=== PATIENT | male | born 1960 | race African-American/Black ===

== ENCOUNTER → 2017-02-28 | Outpatient (CLI) | payer OTHER ==
[~2017-02-28] VITALS: Ht 177.8 cm; Wt 157.9 kg
[~2017-02-28] MED LIST: AMLO-512 PO; CHOL100030 PO; CINN500C4 PO; FERR-89 PO; FURO20 PO; HYDR25TA PO; IBUP200C8 PO; LOSA25TA21 PO; METF500T4 PO; MUPI22OI2 TP; RIVA15T PO; SULF1TAB89 PO; TAMS0.4C32 PO
[2017-02-28 11:51] VITALS: BP 141/78
== END | disposition home or self-care (01) ==
LOC: HBOWC 10:52
PROVIDERS: ATTEND Emergency Medicine
DX: E11.622 Type 2 diabetes mellitus with other skin ulcer (principal); L97.822 Non-pressure chronic ulcer of other part of left lower leg with fat layer exposed; I87.2 Venous insufficiency (chronic) (peripheral); E11.42 Type 2 diabetes mellitus with diabetic polyneuropathy; I10 Essential (primary) hypertension; E66.01 Morbid (severe) obesity due to excess calories; Z86.718 Personal history of other venous thrombosis and embolism
CPT/HCPCS: 11042; G0463

== ENCOUNTER → 2017-03-08 | Outpatient (CLI) | payer OTHER ==
[~2017-03-08] MED LIST changes: -AMLO-512 PO; -CHOL100030 PO; +LIDOCAINE HCL 2% 5 ML JELLY TP ONE
[2017-03-08 13:51] VITALS: BP 133/81
== END | disposition home or self-care (01) ==
LOC: HBOWC 13:32
PROVIDERS: ATTEND Internal Medicine
DX: E11.622 Type 2 diabetes mellitus with other skin ulcer (principal); L97.821 Non-pressure chronic ulcer of other part of left lower leg limited to breakdown of skin; E66.01 Morbid (severe) obesity due to excess calories; I10 Essential (primary) hypertension; E11.40 Type 2 diabetes mellitus with diabetic neuropathy, unspecified; Z86.718 Personal history of other venous thrombosis and embolism; Z86.711 Personal history of pulmonary embolism
CPT/HCPCS: 97597

== ENCOUNTER → 2017-03-15 | Outpatient (CLI) | payer OTHER ==
[~2017-03-15] MED LIST changes: -LIDOCAINE HCL 2% 5 ML JELLY TP ONE; +LIDOCAINE HCL/PF 2% 5 ML VIAL INJ ONE
[2017-03-15 11:30] VITALS: BP 139/75
== END | disposition home or self-care (01) ==
LOC: HBOWC 11:22
PROVIDERS: ATTEND Internal Medicine
DX: S81.802D Unspecified open wound, left lower leg, subsequent encounter (principal); E66.01 Morbid (severe) obesity due to excess calories; E11.42 Type 2 diabetes mellitus with diabetic polyneuropathy; I10 Essential (primary) hypertension; I87.2 Venous insufficiency (chronic) (peripheral); Z86.718 Personal history of other venous thrombosis and embolism; Z86.711 Personal history of pulmonary embolism; X58.XXXD Exposure to other specified factors, subsequent encounter
CPT/HCPCS: 97597; J3490